=== PATIENT | male | born 1940 | race Caucasian/White ===

== ENCOUNTER 2018-06-25 09:25 | Outpatient (CLI) | payer MEDICARE, BC, SELFPAY ==
[2018-06-25 10:52] LABS: Cholesterol 201 mg/dL (50-200); HDL Cholesterol 46 mg/dL (40-60); LDL CHOLESTEROL 132 mg/dL (<100); TSH (W/Ref FT4) 6.86 uIU/mL (0.358-3.74); Triglyceride 118 mg/dL (30-150)
[2018-06-25 11:17] LABS: FREE T4 0.94 ng/dL (0.76-1.46)
== END 2018-06-25 09:45 ==
PROVIDERS: PCP Internal Medicine; Visit Provider Internal Medicine
DX: E03.9 Hypothyroidism, unspecified (principal); E78.00 Pure hypercholesterolemia, unspecified
CPT/HCPCS: 36415; 80061; 83721; 84439; 84443

== ENCOUNTER 2018-12-10 09:40 | Outpatient (CLI) | payer MEDICARE, BC, SELFPAY ==
--- NOTE | 2018-12-10 15:24 | DI.US_ITS ---
EXAM: US CAROTID CLINICAL HISTORY: amaurosis fugax G45.3 TECHNIQUE: Ultrasound performed using standard protocol. COMPARISON: No previous for comparison. FINDINGS: On the right, there is calcific plaque seen in the carotid bulb. No hemodynamically significant [place] elevations are present. The right vertebral artery is antegrade. On the left, there is mild calcific plaque seen in the carotid bulb. No hemodynamically significant velocity elevations are present. The left vertebral artery is antegrade. IMPRESSION: No evidence of hemodynamically significant cervical carotid artery stenosis.
== END 2018-12-10 10:00 ==
PROVIDERS: PCP Internal Medicine; Visit Provider Internal Medicine
DX: G45.3 Amaurosis fugax (principal)
CPT/HCPCS: 93880

== ENCOUNTER 2019-08-20 02:20 | Outpatient (CLI) | payer MEDICARE, BC, SELFPAY ==
[2019-08-20 12:06] LABS: TSH (W/Ref FT4) 2.19 uIU/mL (0.36-3.74)
== END 2019-08-20 02:40 ==
PROVIDERS: PCP Internal Medicine; Visit Provider Internal Medicine
DX: E03.9 Hypothyroidism, unspecified (principal)
CPT/HCPCS: 36415; 84443

== ENCOUNTER 2019-10-01 02:46 | Outpatient (CLI) | payer MEDICARE, BC, SELFPAY ==
[2019-10-01 12:14] LABS: Calculated LDL 219 mg/dL (<100); Cholesterol 293 mg/dL (<200); HDL Cholesterol 42 mg/dL (40-60); TSH (W/Ref FT4) 3.15 uIU/mL (0.36-3.74); Triglyceride 163 mg/dL (<150)
== END 2019-10-01 03:06 ==
PROVIDERS: PCP Internal Medicine; Visit Provider Internal Medicine
DX: E03.9 Hypothyroidism, unspecified (principal); E78.00 Pure hypercholesterolemia, unspecified
CPT/HCPCS: 36415; 80061; 84443

== ENCOUNTER 2019-12-03 01:17 | Outpatient (CLI) | payer MEDICARE, BC, SELFPAY ==
[2019-12-03 13:56] LABS: Calculated LDL 159 mg/dL (<100); Cholesterol 236 mg/dL (<200); HDL Cholesterol 51 mg/dL (40-60); Triglyceride 130 mg/dL (<150)
== END 2019-12-03 01:37 ==
PROVIDERS: PCP Internal Medicine; Visit Provider Internal Medicine
DX: E78.00 Pure hypercholesterolemia, unspecified (principal)
CPT/HCPCS: 36415; 80061

== ENCOUNTER 2020-12-18 14:55 | Outpatient (CLI) | payer MEDICARE, BC, SELFPAY ==
[2020-12-18 14:33] LABS: TSH 3.28 uIU/mL (0.36-3.74)
== END 2020-12-18 14:56 | disposition home or self-care (01) ==
LOC: LBO 14:57
PROVIDERS: PCP Internal Medicine; Visit Provider Internal Medicine
DX: E03.9 Hypothyroidism, unspecified (principal)
CPT/HCPCS: 36415; 84443

== ENCOUNTER → 2021-12-15 02:45 | Outpatient (CLI) | payer MEDICARE, BC, SELFPAY ==
--- NOTE | 2021-12-15 07:33 | DI.US_ITS ---
APPROVED REPORT EXAM: Comprehensive 2D, Doppler, and color-flow Echocardiogram Patient Location: Out-Patient Event Designer: Alyson Varela RDCS (AE) Indications: f/u bioprosthetic aortic valve replacement, h/o aortic stenosis Other Information Study Quality: Adequate Conclusion Normal left ventricular wall thickness and chamber size. Estimated ejection fraction is 60%. Wall m otion is normal Normal right ventricular size and systolic function Both atria are normal in size There is a bioprosthetic aortic valve. Mean gradient is 7 mmHg. There is no aortic regurgitation Normal mitral valve with mild regurgitation Normal tricuspid valve with mild regurgitation. Estimated right ventricular systolic pressure is 25 mmHg Mildly dilated ascending aorta Wall motion Left Ventricle The left ventricle is normal size. The left ventricular systolic function is normal. The left ventric ular ejection fraction is within the normal range. There is normal left ventricular wall thickness. T here is normal LV segmental wall motion. There is no ventricular septal defect visualized. LVEF is 59 %. Right Ventricle The right ventricle is normal size. The right ventricular systolic function is normal. The RVSP is 25 .4 mmHg. Atria The left atrium size is normal. The right atrium size is normal. The interatrial septum is intact wit h no evidence for an atrial septal defect. Aortic Valve Mean gradient is 7 mmHg No aortic regurgitation is present. Bioprosthetic aortic valve is present. Mitral Valve The mitral valve is normal in structure. No evidence of mitral valve stenosis. Mild mitral regurgitat ion. Tricuspid Valve The tricuspid valve is normal in structure. There is no tricuspid valve stenosis. Mild tricuspid regu rgitation. Pulmonic Valve The pulmonary valve is normal in structure. There is no pulmonic valvular stenosis. Trace pulmonic re gurgitation. Great Vessels The aortic root is normal in size. The ascending aorta is mildly dilated. Aortic arch is normal in ca liber. IVC is normal in size and collapses >50% with inspiration. Pericardium There is no pericardial effusion. 2D Dimensions IVSD d PLAX 0.79 cm M: 0.6-1.2 LV Vol A2C d MOD 55.1 mL LVPW d PLAX 0.76 cm M: 0.6 - 1.2 LV Vol A4C d MOD 80.7 mL LVID d PLAX 4.43 cm M: 4.2 - 5.8 LA vol/ BSA A2C s A-L 14.6 mL/m2 LVDs 2.90 cm M: 2.5 - 4.0 LA vol/ BSA A4C s A-L 29.8 mL/m2 Ao Root d 2.37 cm M: 3.1 - 3.7 LA Vol/ BSA Biplane s A-L 22.3 mL/m2 RA Area A4C 10.80 cm2 LA Area A4C s MOD 18.06 cm2 RA Vol/ BSA A4C s A-L 14.1 mL/m2 LA Area A2C s MOD 11.78 cm2 Ao Asc Diam d 3.64 cm M: 2.6 - 3.4 LV EF A4C MOD 58.6 % LV EF Teichholz 63.9 % LV EF A2C MOD 59.9 % LVEF (Desai's) 58.23 % M: 52 - 72 LV EF Biplane MOD 58.2 % LV Volume 52.05 mL M: 62 - 150 SV 38.63 mL LV Volume Index 29.74 mL/m2 M: 34 - 74 SV Index 21.99 mL/m2 LV Vol Biplane MOD 66.3 mL FS 34.50 % M-Mode TAPSE 1.72 cm (M/F) >1.7 LV Diastology MV E' medial 0.073 (>0.07 m/s) E/A Ratio 1.4 LV E/e MED 13.15 (<14) MV E Vmax 0.97 (0.4-1.3 m/s) MV E' lateral 0.071 (>0.1 m/s) MV A Vmax 0.70 (0.4-1.3 m/s) LV E/e LAT 13.60 (<14) MV E/A Ratio 1.37 MV E/E' medial 13.18 MV E/E' lateral 13.63 Aortic Valve LVOT Area 3.27 cm2 AoV Area Vmax 2.08 cm2 LVOT Vmax 1.21 m/s AoV Area/ BSA (Vmax) 1.18 cm2/m2 LVOT Mean Frandy. 0.85 m/s DONAVAN Mean Frandy. 2.19 cm2 LVOT Peak Grad 5.8 mmHg DONAVAN Mean Frandy. Index 1.24 cm2/m2 LVOT Mean Grad 3.2 mmHg LVOT VTI 0.312 m LVOT Diam s 2.00 cm AoV Vmax 1.90 m/s Velocity Ratio 0.63 AoV Mean Frandy. 1.26 m/s AoV Peak Grad 14.4 mmHg LVOT SV 101.93 mL AoV Mean Grad 7.3 mmHg AoV VTI 0.449 m AoV Area VTI 2.27 cm2 AoV Area/ BSA (VTI) 1.29 cm/m2 Mitral Valve MV DT 218 (160-240 msec) MV PHT 63 msec MV Area PHT 3.49 cm2 MV VTI 0.440 m MV Area VTI 2.32 (4.0-6.0 cm2) Pulmonary Valve PV Vmax 0.79 (0.5-1.5 m/s) RVOT Peak Gr. 1.40 mmHg PV Peak Grad 2.5 mmHg RVOT Mean Gr. 0.75 mmHg PV Mean Grad 1.5 mmHg RVOT VTI 0.160 m PV VTI 0.215 m RVOT Vmax 0.59 m/s Tricuspid Valve TR Peak Grad 22.3 mmHg TR Vmax 2.37 m/s RA Pressure 3.00 mmHg RVSP (TR) 25.4 mmHg
== END ==
PROVIDERS: PCP Internal Medicine; Visit Provider Nurse Practitioner Adult Health
DX: Z86.79 Personal history of other diseases of the circulatory system (principal); Z95.2 Presence of prosthetic heart valve
CPT/HCPCS: 93306

== ENCOUNTER 2022-09-23 02:33 | Outpatient (CLI) | payer MEDICARE, BC, SELFPAY ==
[2022-09-23 15:29] LABS: ESR 8 mm/hr (0-20)
[2022-09-23 16:28] LABS: BUN 18 mg/dL (7-18); CREATININE 1.6 mg/dL (0.70-1.30); Calcium 8.7 mg/dL (8.5-10.1); Calculated LDL 99 mg/dL (<100); Chloride 106 mmol/L (98-107); Cholesterol 172 mg/dL (<200); Estimated GFR 42.49 (mL/min/1.73m2); Glucose 100 mg/dL (74-106); HDL Cholesterol 47 mg/dL (40-60); Potassium 4.3 mmol/L (3.5-5.1); Sodium 140 mmol/L (136-145); TSH (W/Ref FT4) 3.01 uIU/mL (0.36-3.74); Triglyceride 131 mg/dL (<150)
[2022-09-23 16:59] LABS: C-Reactive Protein < 0.05 mg/dL (0.0-0.3)
== END 2022-09-23 02:34 | disposition home or self-care (01) ==
LOC: LBO 02:33
PROVIDERS: PCP Nurse Practitioner Adult Health; Visit Provider Nurse Practitioner Adult Health
DX: E03.9 Hypothyroidism, unspecified (principal); E78.00 Pure hypercholesterolemia, unspecified; H54.61 Unqualified visual loss, right eye, normal vision left eye
CPT/HCPCS: 36415; 80048; 80061; 85652; 84443; 86140

== ENCOUNTER → 2022-10-06 03:33 | Outpatient (CLI) | payer MEDICARE, BC, SELFPAY ==
--- NOTE | 2022-10-06 07:00 | DI.US_ITS ---
Exam(s) US CAROTID EXAM: US CAROTID CLINICAL HISTORY: ?amaurusis fugax,sudden visual loss rt eye,h53.131. TECHNIQUE: Ultrasound carotids performed using grayscale, color-flow, and spectral Doppler imaging. COMPARISON: US US ECHOCARDIOGRAM from 12/15/2021 FINDINGS: CAROTID ARTERIES: There is mild plaque bilaterally at the carotid bulbs proximal ICAs. No associated elevated velocities. VERTEBRAL ARTERIES: Antegrade flow demonstrated bilaterally. Measurements: R Bulb: 75.9 cm/s PS / 17.8 cm/s ED R CCA: 82.8 cm/s PS / 24.5 cm/s ED R ECA: 59.8 cm/s PS / 0 cm/s ED R ICA Prox: 119.6 cm/s PS / 37.5 cm/s ED R ICA Mid: 91.6 cm/s PS / 32.2 cm/s ED R ICA Distal: 84.4 cm/s PS /31 cm/s ED R Vert: 40.1 cm/s PS / 10.9 cm/s ED R SVR: 1.4 R DVR: 1.5 L Bulb: 83.4 cm/s PS / 21.3 cm/s ED L CCA: 83.1 cm/s PS / 20.1 cm/s ED L ECA: 58.2cm/s PS / 0cm/s ED L ICA Prox: 100.2 cm/s PS / 25.4 cm/s ED L ICA Mid: 89.8 cm/s PS / 27.8 cm/s ED L ICA Distal: 84.9 cm/s PS / 28.9 cm/s ED L Vert: 67.3 cm/s PS / 21.4 cm/s ED L SVR: 1.2 L DVR: 1.3 IMPRESSION: Mild plaque both carotid bulbs-proximal ICAs. No significantly elevated velocities. This implies th at the amount of stenosis is less than 50 percent bilaterally. Antegrade flow was demonstrated in both vertebral arteries. Criteria for Carotid Stenosis: Normal: ICA PSV <125 cm/s no plaque or intimal thickening is visible. <50% stenosis: ICA PSV <125 cm/s and plaque or intimal thickening is visible. 50-69% stenosis: ICA PSV is 125-250 cm/s and plaque is visible. >70% stenosis to near occlusion: ICA PSV >250 cm/s with visible plaque and luminal narrowing. DATA REPOSITORY:
== END ==
PROVIDERS: PCP Nurse Practitioner Adult Health; Visit Provider Nurse Practitioner Adult Health
DX: H53.121 Transient visual loss, right eye (principal); H53.131 Sudden visual loss, right eye
CPT/HCPCS: 93880

== ENCOUNTER 2022-10-11 12:30 | Outpatient (CLI) | payer MEDICARE, BC, SELFPAY ==
--- NOTE | 2022-10-11 12:30 | RT.EKG_ITS ---
APPROVED REPORT Exam: Resting ECG Reason for Exam: cardiac evaluation Patient Location: O HR:55 bpm ECG Measurements Heart Rate 55 AXIS AL 152 P 43 QRSd 97 QRS 51 QT 425 T 10 QTc 407 Conclusion Sinus rhythm...normal P axis, V-rate 50- 99 Baseline wander in lead(s) V4 Normal Electrocardiogram
== END 2022-10-11 12:31 | disposition home or self-care (01) ==
LOC: DI.CARD 12:31
PROVIDERS: PCP Nurse Practitioner Adult Health; Visit Provider Internal Medicine Cardiovascular Disease
DX: I35.0 Nonrheumatic aortic (valve) stenosis (principal); Z95.2 Presence of prosthetic heart valve
CPT/HCPCS: 93010

== ENCOUNTER → 2022-10-11 12:42 | Outpatient (BNVA) | payer MEDICARE, BC, SELFPAY | PROVIDERS: PCP Nurse Practitioner Adult Health; Referring Provider Nurse Practitioner Adult Health; Visit Provider Internal Medicine Cardiovascular Disease | DX: H54.61 Unqualified visual loss, right eye, normal vision left eye (principal); Z95.2 Presence of prosthetic heart valve | CPT/HCPCS: 93005; 93270; 99203 ==

== ENCOUNTER 2022-10-11 13:22 | Outpatient (CLI) | payer MEDICARE, BC, SELFPAY | END 2022-10-11 13:23 | disposition home or self-care (01) | PROVIDERS: PCP Nurse Practitioner Adult Health; Visit Provider Internal Medicine Cardiovascular Disease | DX: H54.7 Unspecified visual loss (principal); Z95.2 Presence of prosthetic heart valve | CPT/HCPCS: 93270 ==

== ENCOUNTER 2022-11-14 08:03 | Outpatient (CLI) | payer MEDICARE, BC, SELFPAY ==
--- NOTE | 2022-11-14 09:02 | W.CARDEVENT ---
Date of service: 11/14/22 Time of Service: 09:02 Cardiac Event Recorder Referring Provider:: Iqra Corral Indications:: Amaurosis fugax Cardiac Event Note: This is a cardiac event monitor ordered because of amaurosis fugax. patient was monitored for a total of 29 days . rhythm throughout was sinus. Average heart rate was 61. Minimum was 54, maximum 105. there was no atrial fibrillation. There was one 7 beat run of nonsustained ventricular tachycardia There was no high-grade AV block, no pauses greater than 3 seconds. no patient symptoms were reported
== END 2022-11-14 08:04 | disposition home or self-care (01) ==
LOC: CARDOPNVT 08:03
PROVIDERS: PCP Nurse Practitioner Adult Health; Visit Provider Internal Medicine Cardiovascular Disease
DX: G45.3 Amaurosis fugax (principal); Z95.2 Presence of prosthetic heart valve
CPT/HCPCS: 93272

== ENCOUNTER 2022-11-23 19:55 | Outpatient (REF) | payer MEDICARE, BC, SELFPAY ==
[2022-11-23 21:04] LABS: Abs Immature Grans 0.01 10^3/uL (0.0-0.06); Absolute Basophil Count 0.07 10^3/uL (0.0-0.2); Absolute Eosinophil Count 0.18 10^3/uL (0.0-0.7); Absolute Lymphocyte Count 1.43 10^3/uL (1.2-3.4); Absolute Monocyte Count 0.75 10^3/uL (0.1-0.8); Absolute Neutrophil Count 3.29 10^3/uL (1.2-6.7); Basophils % 1.2; Eosinophils % 3.1; HCT 39.2 % (40.0-50.0); HGB 12.9 g/dL (13.5-17.5); Immature Grans % 0.2; MCH 28.9 pg (27.0-33.0); MCHC 32.9 % (32.0-36.0); MCV 88 fL (80-95); MPV 11.5 fL (8.0-11.0); Monocytes % 13.1; Neutrophils % 57.4; Platelet Count 144 10^3/uL (130-400); RBC 4.47 10^6/uL (4.36-5.78); RDW 14.3 % (11.8-14.1); RDW-SD 46.1 fL; WBC 5.73 10^3/uL (4.4-10.8)
[2022-11-23 21:37] LABS: ALT 17 U/L (16-63); AST 25 U/L (15-37); Alkaline Phosphatase 72 U/L (46-116); Anion Gap 10.3 mmol/L (3-11); BUN 19 mg/dL (7-18); Bilirubin, Total 0.5 mg/dL (0.2-1.0); C-Reactive Protein 0.07 mg/dL (0.0-0.3); CO2 22.7 mmol/L (21.0-32.0); CREATININE 1.6 mg/dL (0.70-1.30); Calcium 9.6 mg/dL (8.5-10.1); Chloride 102 mmol/L (98-107); Estimated GFR 42.49 (mL/min/1.73m2); Glucose 92 mg/dL (74-106); Sodium 135 mmol/L (136-145)
[2022-11-24 12:01] LABS: ESR (LRH) 27 mm/hr
[2022-11-25 10:39] LABS: Lyme Ab w Rflx to Lyme Confirm Negative (Negative)
[2022-11-27 00:17] LABS: Anaplasma phagocytophilum Negative (Negative); B. miyamotoi PCR Negative (Negative); Babesia divergens/MO-1 Negative (Negative); Babesia duncani Negative (Negative); Babesia microti Negative (Negative); Ehrlichia chaffeensis Negative (Negative); Ehrlichia ewingii/canis Negative (Negative); Ehrlichia muris eauclairensis Negative (Negative)
== END 2022-11-23 19:56 | disposition home or self-care (01) ==
LOC: LBN 19:55
PROVIDERS: PCP Nurse Practitioner Adult Health; Visit Provider Nurse Practitioner Adult Health
DX: R26.89 Other abnormalities of gait and mobility (principal); R51.9 Headache, unspecified; Z95.2 Presence of prosthetic heart valve
CPT/HCPCS: 80053; 85652; 87798; 85025; 86140; 86618